=== PATIENT | female | born 1970 | race Caucasian/White ===

== ENCOUNTER 2017-10-13 09:50 | Emergency (ER) | payer OTHER ==
[~2017-10-13] VITALS: Ht 167.6 cm; Wt 99.0 kg
[~2017-10-13 09:50] MED LIST: Feosol PO; HYDROXYCHLOROQ200 MG PO; MOTRIN PO; Motrin PO; PERCOCET 5/31 TABLET PO; PREDNISONE20 MG PO; TRAMADOL HCL50 MG PO; ZOFRAN4 MG PO
[2017-10-13 10:23] LABS: EOSINOPHIL (%) 0.3 % (0-5); HEMATOCRIT 32.9 % (36.0-46.0); IMMATURE GRANULOCYTE (%) 0.3 % (0.0-0.7); INSTRUMENT ABS NEUTROPHIL CT 6.9 K/uL; LYMPHOCYTE COUNT 1.2 K/uL (1.0-2.8); MCH 28.7 PG (29.0-34.0); MCHC 33.4 G/DL (30.0-36.0); MCV 85.9 FL (83-99); MEAN PLAT.VOLUME 9.4 uM^3 (9.5-12.4); MONOCYTE (%) 5.6 % (3-12); MONOCYTE COUNT 0.5 K/uL (0-0.8); NEUTROPHIL (%) 79.4 % (45-76); NEUTROPHIL COUNT 6.9 K/uL (1.8-6.4); PLATELET COUNT 257 K/uL (156-360); RBC DIS.WIDTH-CV 13.3 % (11.8-14.6); RBC DIS.WIDTH-SD 40.9 % (39-53); RED BLOOD COUNT 3.83 M/uL (3.80-5.20); WHITE BLOOD COUNT 8.7 K/uL (4.1-10.2)
[2017-10-13 10:34] LABS: CHLORIDE 109 mEq/L (99-109); POTASSIUM 3.6 mEq/L (3.7-5.4); SODIUM 143 mEq/L (136-147)
[2017-10-13 10:36] LABS: GLUCOSE 117 mg/dL (70-99)
[2017-10-13 10:37] LABS: ANION GAP 12 MEQ/L (2-14)
[2017-10-13 10:40] LABS: GFR ESTIMATE (CALCULATED) > 59 mL/min/
[2017-10-13 10:41] LABS: UREA NITROGEN (BUN) 14 mg/dL (9-23)
[2017-10-13] MEDS ORDERED: ULTRAM50 MG PO (11:32)
[2017-10-13] MEDS ORDERED: MEDROL DOSEPAK4 MG PO (11:32)
[2017-10-13 13:15] VITALS: BP 142/83
== END 2017-10-13 13:16 | disposition home or self-care (01) ==
LOC: EME 09:50
PROVIDERS: Emergency Medicine
DX: M32.9 Systemic lupus erythematosus, unspecified (principal); M25.521 Pain in right elbow; M25.522 Pain in left elbow; Z72.0 Tobacco use
CPT/HCPCS: 80048; 85025; 99281; 99285; J2270; J2930

== ENCOUNTER 2017-11-28 11:00 | Emergency (ER) | payer OTHER ==
[~2017-11-28] VITALS: Ht 167.6 cm; Wt 98.3 kg
[~2017-11-28 11:00] MED LIST changes: +MEDROL DOSEPAK4 MG PO; +ULTRAM50 MG PO
[2017-11-28 11:24] VITALS: BP 135/87
== END 2017-11-28 12:30 | disposition left against medical advice (07) ==
LOC: EME 11:00
DX: R22.9 Localized swelling, mass and lump, unspecified (principal); Z53.21 Procedure and treatment not carried out due to patient leaving prior to being seen by health care provider

== ENCOUNTER 2017-12-04 02:01 | Emergency (ER) | payer OTHER ==
[~2017-12-04] VITALS: Ht 170.2 cm; Wt 96.8 kg
[2017-12-04] MEDS ORDERED: ROXICODONE5 MG PO (03:20)
[2017-12-04] MEDS ORDERED: DELTASONE20 M1 PO (03:20)
[2017-12-04 04:06] VITALS: BP 140/97
== END 2017-12-04 04:07 | disposition home or self-care (01) ==
LOC: EME 02:01
DX: L93.2 Other local lupus erythematosus (principal); F17.200 Nicotine dependence, unspecified, uncomplicated
CPT/HCPCS: 99281; 99285; J7512

== ENCOUNTER 2018-06-09 09:26 | Emergency (ER) | payer OTHER ==
[~2018-06-09] VITALS: Ht 167.6 cm; Wt 95.6 kg
[~2018-06-09 09:26] MED LIST changes: +DELTASONE20 M1 PO; +ROXICODONE5 MG PO
[2018-06-09 10:55] LABS: HEMATOCRIT 35.1 % (36.0-46.0); HEMOGLOBIN 11.8 G/DL (11.9-15.5); MCH 28.4 PG (29.0-34.0); MCHC 33.6 G/DL (30.0-36.0); MCV 84.6 FL (83-99); PLATELET COUNT 231 K/uL (156-360); RBC DIS.WIDTH-CV 13.5 % (11.8-14.6); RBC DIS.WIDTH-SD 41.1 % (39-53); RED BLOOD COUNT 4.15 M/uL (3.80-5.20)
[2018-06-09 11:05] LABS: CHLORIDE 105 mEq/L (99-109); POTASSIUM 3.7 mEq/L (3.7-5.4); SODIUM 142 mEq/L (136-147)
[2018-06-09 11:07] LABS: GLUCOSE 103 mg/dL (70-99)
[2018-06-09 11:10] LABS: CREATININE 0.9 mg/dL (0.6-1.3); GFR ESTIMATE (CALCULATED) > 59 mL/min/
[2018-06-09 11:11] LABS: UREA NITROGEN (BUN) 10 mg/dL (9-23)
[2018-06-09] MEDS ORDERED: MEDROL DOSEPAK4 MG PO (12:19)
[2018-06-09] MEDS ORDERED: PERCOCET 5/31 TABLET PO (12:19)
[2018-06-09] MEDS ORDERED: ZOFRAN ODT4 MG PO (12:19)
[2018-06-09 13:09] VITALS: BP 151/109
== END 2018-06-09 13:11 | disposition home or self-care (01) ==
LOC: EME 09:26
PROVIDERS: Nurse Practitioner Family
DX: M32.9 Systemic lupus erythematosus, unspecified (principal); F17.200 Nicotine dependence, unspecified, uncomplicated
CPT/HCPCS: 80048; 85027; 99281; 99284; J2405; J2930; J3010; J7030